=== PATIENT | female | born 1990 | race Hispanic/Latino ===

== ENCOUNTER → 2016-09-19 22:53 | Emergency (ER) | payer MEDICAID ==
[~2016-09-19 22:53] MED LIST: ACET325T51 PO; Ascorbic Acid PO; CEPH500C PO; DOCU-41 PO; FERR-74 PO; IBUP-1827 PO; NOMED; OXYC1TAB24 PO; SERT50TA9 PO
[2016-09-19 22:56] VITALS: BP 128/80; PULSE 77; RESP 18
== END | disposition admitted as inpatient to this hospital (09) ==
LOC: SED 22:53
DX: M54.5 Low back pain (principal)